=== PATIENT | male | born 1940 | race Caucasian/White ===

== ENCOUNTER 2020-04-02 04:52 | Inpatient (IN) ==
--- NOTE | 2020-03-20 15:26 | PAT Medication Instructions ---
Medication Instructions Date of Service March 20, 2020 Home Medications Prevagen 50 mg PO QPM albuterol sulfate 1 inh INHALATION QID PRN albuterol sulfate 2.5 mg INHALATION QID PRN amlodipine 10 mg PO QAM apixaban [Eliquis] 5 mg PO BID azelastine 1 spray INTRANASAL DAILY carvedilol 6.25 mg PO UD chlorthalidone 25 mg PO QAM cholecalciferol (vitamin D3) [Vitamin D3] 25 mcg PO BID diclofenac sodium 75 mg PO QAM finasteride 5 mg PO QAM gabapentin 100 mg PO QAM iron 159 mg PO HS losartan 100 mg PO QAM montelukast [Singulair] 10 mg PO HS pravastatin 40 mg PO BID tamsulosin 0.4 mg PO BID umeclidinium-vilanterol [Anoro Ellipta] 1 inh INHALATION QAM ASK your surgeon for instructions diclofenac sodium 75 mg PO QAM ASK your prescriber and surgeon apixaban [Eliquis] 5 mg PO BID (in order for spinal anesthesia, Apixaban/Eliquis needs to be stopped 72 hours/3 days before surgery. Please check if okay with doctor that prescribes this to you) DO NOT take the morning of surgery chlorthalidone 25 mg PO QAM cholecalciferol (vitamin D3) [Vitamin D3] 25 mcg PO BID losartan 100 mg PO QAM Take morning of surgery With a small sip of water, OTHERWISE NOTHING TO EAT OR DRINK AFTER MIDNIGHT: albuterol sulfate 1 inh INHALATION QID PRN (if needed) albuterol sulfate 2.5 mg INHALATION QID PRN (if needed) amlodipine 10 mg PO QAM azelastine 1 spray INTRANASAL DAILY carvedilol 6.25 mg PO UD finasteride 5 mg PO QAM gabapentin 100 mg PO QAM pravastatin 40 mg PO BID tamsulosin 0.4 mg PO BID umeclidinium-vilanterol [Anoro Ellipta] 1 inh INHALATION QAM Take evening before surgery Prevagen 50 mg PO QPM albuterol sulfate 1 inh INHALATION QID PRN (if needed) albuterol sulfate 2.5 mg INHALATION QID PRN (if needed) apixaban [Eliquis] 5 mg PO BID carvedilol 6.25 mg PO UD cholecalciferol (vitamin D3) [Vitamin D3] 25 mcg PO BID iron 159 mg PO HS montelukast [Singulair] 10 mg PO HS pravastatin 40 mg PO BID tamsulosin 0.4 mg PO BID Other Notes If you have any questions please call us at [phone] or [phone] or [phone] or [phone]
--- NOTE | 2020-03-21 12:43 | Anesthesiology Consultation ---
Date of Service March 21, 2020 Assessment & Plan (1) Encounter for pre-operative examination: - Elevated creatinine: creatinine 1.77 on preop labs. Awaiting PCP response and surgeon-ordered PCP clearance ([facility]; 03/26). - Cardiac testing: Per 12/2019 cardiology note, ECHO done 07/2019 and stress test 12/2018. Per patient, pacer check done "recently." Attempting to obtain official reports. - Per assessment on 03/21: Travel screen- Lives in [facility]. Travel to [facility] for doctor appts. No known COVID-19 positive contacts or current COVID-19 related symptoms. Surgeon arranging preop COVID testing. Awaiting results. - Cardiology note: 01/25/20: "doing fairly well clinically from a cardiac standpoint after permanent pacemaker placements.. Pacemaker check done July this year shows adequate battery voltage lead parameters and function.. Patient is an acceptable risk from the cardiovascular standpoint to proceed." - Hx aortic stenosis ("mild" on 07/2019 echo per 12/2019 cardiology office visit note- attempting to obtain official report). SAB vs. GA discussed with patient. OR made aware of possibility for general anesthesia. - Eliquis instructions: patient made aware that in order for spinal anesthesia, Eliquis needs to be held 72 hours/3 days prior to surgery. Patient voiced understanding- he states that he already checked with cardiology and they approved patient to stop Eliquis 3 days prior to surgery. History Surgery Operation Date: 04/02/20 07:15 Proposed Procedures p Right Total Hip Arthroplasty - Beau Lezama DO Height/Weight Height: 5 ft 11 in Weight: 125.2 kg Allergies Allergy/AdvReac Type Severity Reaction Status Date / Time No Known Allergies Allergy Verified 03/15/20 08:21 Medications Home Medications Medication Instructions Recorded Confirmed Last Taken Prevagen 50 mg PO QPM 03/15/20 03/15/20 Unknown albuterol sulfate 1 inh INHALATION QID PRN 03/15/20 03/15/20 Unknown albuterol sulfate 2.5 mg INHALATION QID PRN 03/15/20 03/15/20 Unknown amlodipine 10 mg PO QAM 03/15/20 03/15/20 Unknown apixaban [Eliquis] 5 mg PO BID 03/15/20 03/15/20 Unknown azelastine 1 spray INTRANASAL DAILY 03/15/20 03/15/20 Unknown carvedilol 6.25 mg PO UD 03/15/20 03/15/20 Unknown chlorthalidone 25 mg PO QAM 03/15/20 03/15/20 Unknown cholecalciferol (vitamin D3) 25 mcg PO BID 03/15/20 03/15/20 Unknown [Vitamin D3] diclofenac sodium 75 mg PO QAM 03/15/20 03/15/20 Unknown finasteride 5 mg PO QAM 03/15/20 03/15/20 Unknown gabapentin 100 mg PO QAM 03/15/20 03/15/20 Unknown iron 159 mg PO HS 03/15/20 03/15/20 Unknown losartan 100 mg PO QAM 03/15/20 03/15/20 Unknown montelukast [Singulair] 10 mg PO HS 03/15/20 03/15/20 Unknown pravastatin 40 mg PO BID 03/15/20 03/15/20 Unknown tamsulosin 0.4 mg PO BID 03/15/20 03/15/20 Unknown umeclidinium-vilanterol [Anoro 1 inh INHALATION QAM 03/15/20 03/15/20 Unknown Ellipta] Past Medical History Medical History Asthma stable BPH (benign prostatic hyperplasia) Chronic obstructive pulmonary disease stable Degenerative disc disease GERD (gastroesophageal reflux disease) controlled Hyperlipidemia Hypertension Mild aortic stenosis Obesity Osteoarthritis Pacemaker Implanted 08/11/19 at [facility] (07/30 SSS), last check 07/2019 per cardiology Paroxysmal A-fib Restless leg syndrome Sleep apnea CPAP Transient ischemic attack (TIA) multiple, most recent 1+ years ago Exercise / Class Metabolic Activity III < 4 Walking/Shop/Light housework (uses walker PRN) Past Family History Family History Father Family history of diabetes mellitus Brother No problems noted. Brother Family history of diabetes mellitus Past Surgical History Surgical History H/O hand surgery LEFT HAND FINGER REPAIRED History of colonoscopy History of tooth extraction Past Anesthesia History No Hx of Anesthesia Complications and No Family Hx of Anesthesia Complications History of PONV No Hx of PONV and No Hx of Motion Sickness Social History Smoking Status: Former smoker tobacco type: cigarettes Do You Dip or Chew Tobacco: No Smoking End Date: Quit 40 years ago Hx Alcohol Use: Yes alcohol intake frequency: holidays/special occasions only Hx Substance Use: No substance use type: does not use Review of Systems Patient denies chest pain, shortness of breath, fever, chills, cough, wheezing, palpitations. Physical Exam Vital Signs VITALS BP 97/70 P 78 TEM P 98.2 SP02 94%RA RESP 18 PHYSICAL Full neck and c-spine range of motion. Full TMJ range of motion. TMD 3.5 finger breaths Mallampati Score 3 Dentition: upper/lower dentures Lungs: diminished breath sounds throughout Cardiac: regular rate and rhythm, no murmurs noted Spine: normal Carotid arteries: negative bruit Extremities: no edema Testing Laboratory Results 03/21/20 13:54 03/21/20 13:54 PT 11.7 Seconds (9.0-12.0) 03/21/20 13:54 INR 1.1 (0.9-1.1) 03/21/20 13:54 APTT 30.8 Seconds (21.0-31.0) 03/21/20 13:54 Hemoglobin A1c 5.5 % (4.5-5.6) 03/21/20 13:54 Urine Color Yellow 03/21/20 Unknown Urine Appearance Clear (Clear) 03/21/20 Unknown Urine pH 5.0 (4.5-7.5) 03/21/20 Unknown Ur Specific [place] 1.019 (1.000-1.030) 03/21/20 Unknown Urine Protein Negative (Negative) 03/21/20 Unknown Urine Glucose (UA) Negative (Negative) 03/21/20 Unknown Urine Ketones Negative (Negative) 03/21/20 Unknown Urine Nitrite Negative (Negative) 03/21/20 Unknown Ur Leukocyte Esterase 2+ (Negative) H 03/21/20 Unknown Urine WBC (Auto) 5-10 /hpf (0-5) H 03/21/20 Unknown Urine RBC (Auto) 0-4 /hpf (0-4) 03/21/20 Unknown U Hyaline Cast (Auto) 1-5 /lpf (0-5) 03/21/20 Unknown U Epithel Cells (Auto) >30 /lpf (0-5) H 03/21/20 Unknown Urine Bacteria (Auto) Negative (Negative) 03/21/20 Unknown Blood Type AB Positive 03/21/20 13:54 Antibody Screen NEGATIVE 03/21/20 13:54 Electrocardiogram Date: 03/21/20 AV dual-paced rhythm with prolonged AV conduction with PVC's at 63bpm. unconfirmed report. Chest X-Ray Date: 03/21/20 FINDINGS: Cardiomediastinal and hilar silhouettes are within normal limits. Right subclavian dual lead pacer. No pneumothorax, pleural effusion, airspace consolidation or overt pulmonary edema. Bones of the chest appear grossly intact. IMPRESSION: No acute process. Echocardiogram Date: 08/10/19 "LVH pattern.. EF 65%.. grade 1 LV diastolic dysfunction.. normal size RV and function.. normal size both atria with high normal aortic root at 4.2 centimeters.. mild aortic stenosis.. mean 18.94 meteres of mercury.. valve area 1.5 centimeters.. mild MR.. mild .. midl AI.. trace to mild TR" per 01/25/20 cardiology office visit note. Stress Test 2017 Lexiscan stress test: "negative study for ischemia but positive for old inferior wall CT" per 01/25/2020 cardiology office visit note. Other Testing Pacer check: 07/2019: "adequate battery voltage.. lead parameters.. and function" per 01/25/20 cardiology office visit note.
--- NOTE | 2020-03-21 14:37 | XRay Report ---
XR chest Pre-admission PA/Lat HISTORY: 80 years-old Male pat preoperative exam. No acute chest complaints COMPARISON: None TECHNIQUE: PA and lateral views of the chest FINDINGS: Cardiomediastinal and hilar silhouettes are within normal limits. Right subclavian dual lead pacer. N o pneumothorax, pleural effusion, airspace consolidation or overt pulmonary edema. Bones of the chest appear grossly intact. IMPRESSION: No acute process. ACT 112: Negative or not required by law. The above report was generated using voice recognition software. It may contain grammatical, syntax o r spelling errors. Electronically signed by: Bry Gooden M.D. 03/21/2020 2:36 PM
[2020-03-21 15:01] LABS: Basophils # (auto) 0.02 K/uL (0-0.2); Basophils % (auto) 0.2 %; Eosinophils # (auto) 0.17 K/uL (0-0.5); Eosinophils % (auto) 1.8 %; Hematocrit (blood only) 42.2 % (42-52); Hemoglobin 14.3 g/dL (14.0-18.0); Immature Granulocytes # (auto) 0.03 K/uL (0.00-0.02); Immature Granulocytes % (auto) 0.3 %; Lymphocytes # (auto) 1.49 K/uL (1.2-3.4); Lymphocytes % (auto) 15.5 %; Mean Corpuscular Hemoglobin 29.9 pg (25-34); Mean Corpuscular Hgb Conc 33.9 g/dL (32-36); Mean Corpuscular Volume 88.1 fL (80-100); Mean Platelet Volume 9.4 fL (7.4-10.4); Monocytes # (auto) 0.39 K/uL (0.11-0.59); Neutrophils # (auto) 7.54 K/uL (1.4-6.5); Neutrophils % (auto) 78.2 %; Platelet Count 226 K/uL (130-400); RDW Coefficient of Variation 13.3 % (11.5-14.5); RDW Standard Deviation 43.1 fL (36.4-46.3); Red Blood Count 4.79 M/uL (4.7-6.1); White Blood Count 9.64 K/uL (4.8-10.8)
[2020-03-21 15:08] LABS: Albumin Level 3.5 gm/dl (3.4-5.0); BUN Creatinine Ratio 23.6 (10-20); Calcium 9.4 mg/dl (8.5-10.1); Creatinine Clr Calc Pharmacy 44.8 ml/min; Est GFR (African American) 41.1; Est GFR (Non-African American) 35.5; Potassium 3.5 mmol/L (3.5-5.1)
[2020-03-21 15:09] LABS: Appearance Urine Clear (Clear); Bacteria Urine Automated Negative (Negative); Bilirubin Urine Negative (Negative); Blood Urine Negative (Negative); Color Urine Yellow; Epithelial Cell Urine Auto >30 /lpf (0-5); Glucose Urine UA Negative (Negative); Ketones Urine Negative (Negative); Leukocyte Esterase Urine 2+ (Negative); Nitrite Urine Negative (Negative); Protein Urine Negative (Negative); RBC Urine Automated 0-4 /hpf (0-4); Specific Gravity Urine 1.019 (1.000-1.030); Urobilinogen Urine Negative (Negative)
[2020-03-21 15:13] LABS: INR 1.1 (0.9-1.1); Partial Thromboplastin Ratio 1.1; Partial Thromboplastin Time 30.8 Seconds (21.0-31.0); Prothrombin Time 11.7 Seconds (9.0-12.0)
[2020-03-22 06:03] LABS: Estimated Average Glucose 111 mg/dl; Hemoglobin A1C 5.5 % (4.5-5.6)
--- NOTE | 2020-03-22 12:52 | Electrocardiogram Report ---
Test Reason : Blood Pressure : / mmHG Vent. Rate : 063 BPM Atrial Rate : 063 BPM P-R Int : 262 ms QRS Dur : 174 ms QT Int : 522 ms P-R-T Axes : 057 -80 091 degrees QTc Int : 534 ms AV dual-paced rhythm with prolonged AV conduction with occasional Premature ventricular complexes Abnormal ECG No previous ECGs available Confirmed by Kelvin Muhammad ([id number]) on 03/22/2020 12:52:09 PM Referred By: Beau Lezama Confirmed By:Kelvin Muhammad
--- NOTE | 2020-03-30 16:42 | History & Physical Report ---
Date of Service April 02, 2020 Assessment & Plan (1) Degenerative joint disease of right hip: I have indicated the patient for right total hip replacement. The risks, benefits and complications of surgery were explained to the patient which include but not limited to infection, acute blood loss, DVT/PE, injury to nerves, vessels, bone, soft tissue, arthrofibrosis, chronic pain, failure of the prosthesis, hip dislocation, leg length discrepancy, need for additional surgery, cardiac and pulmonary events and . The patient wished to proceed with surgery and informed consent was obtained at this time. We will plan for restarting Eliquis post-operatively for DVT prophylaxis. Upon discharge the patient will be discharged home with home health services. Appropriate clearances by PCP were obtained. Patient is Jahovah's Witness, will not consent to transfusion. Cr elevated at PAT, PCP recheck of BMP on 03/26/20. Recheck 1.33, back to baseline. History of Present Illness Chief Complaint: Right hip pain/DJD Primary Care Provider: Maikel Charlton DO The patient is a 80 year old male who presents with complaints of severe right hip pain and DJD. The patient has failed outpatient conservative treatments to this point which included IA corticosteroid injection, home exercise/walking program, unable to have NSAIDS secondary to being on Eliquis. The patient's pain and limited function have progressed to the point where they severely hinder their activities of daily living and they no longer tolerate exercise programs. They are requesting to proceed with total hip replacement surgery. Allergies Allergy/AdvReac Type Severity Reaction Status Date / Time No Known Allergies Allergy Verified 04/02/20 05:33 Home Medications Home Medications Medication Instructions Recorded Confirmed Type Prevagen 50 mg PO QPM 03/15/20 04/02/20 History albuterol sulfate 1 inh INHALATION QID PRN 03/15/20 04/02/20 History albuterol sulfate 2.5 mg INHALATION QID PRN 03/15/20 03/15/20 History amlodipine 10 mg PO QAM 03/15/20 04/02/20 History apixaban [Eliquis] 5 mg PO BID 03/15/20 04/02/20 History azelastine 1 spray INTRANASAL DAILY 03/15/20 04/02/20 History carvedilol 6.25 mg PO UD 03/15/20 04/02/20 History chlorthalidone 25 mg PO QAM 03/15/20 04/02/20 History cholecalciferol (vitamin D3) 25 mcg PO BID 03/15/20 04/02/20 History [Vitamin D3] diclofenac sodium 75 mg PO QAM 03/15/20 04/02/20 History finasteride 5 mg PO QAM 03/15/20 04/02/20 History gabapentin 100 mg PO QAM 03/15/20 04/02/20 History iron 159 mg PO HS 03/15/20 04/02/20 History losartan 100 mg PO QAM 03/15/20 04/02/20 History montelukast [Singulair] 10 mg PO HS 03/15/20 04/02/20 History pravastatin 40 mg PO BID 03/15/20 04/02/20 History tamsulosin 0.4 mg PO BID 03/15/20 04/02/20 History umeclidinium-vilanterol [Anoro 1 inh INHALATION QAM 03/15/20 04/02/20 History Ellipta] Past Med/Surg History Medical History Asthma stable BPH (benign prostatic hyperplasia) Chronic obstructive pulmonary disease stable Degenerative disc disease GERD (gastroesophageal reflux disease) controlled Hyperlipidemia Hypertension Mild aortic stenosis Obesity Osteoarthritis Pacemaker Implanted 08/11/19 at [facility] (07/30 SSS), last check 07/2019 per cardiology Paroxysmal A-fib Restless leg syndrome Sleep apnea CPAP Transient ischemic attack (TIA) multiple, most recent 1+ years ago Surgical History H/O hand surgery LEFT HAND FINGER REPAIRED History of colonoscopy History of tooth extraction Family History Father Family history of diabetes mellitus Brother No problems noted. Brother Family history of diabetes mellitus Social History Smoking Status: Former smoker Smoking End Date: Quit 40 years ago; Second Hand Exposure: No; Do You Dip or Chew Tobacco: No; Tobacco Cessation Education Requested by Patient: No Hx Alcohol Use: Yes Hx Substance Use: No Preferred Language: Lebanese Flask Pusher Required: No Beliefs That Will Affect Care: Yazidism Yazidism Beliefs: JEHOVAW WITNESS/NO BLOOD PRODUCTS Current Living Situation: Spouse Feels Safe at Home: Yes Safety Concerns: Feels Safe At This Time Assistive Devices: Cane, CPAP, Denture - Upper, Denture - Lower, Glasses, Hearing Aid - Bilateral, Nebulizer and Walker Review of Systems Review of Systems: All systems reviewed & are unremarkable except as noted in HPI & below Constitutional: as per Subjective / HPI Physical Exam Physical Exam: RLE NVSI +EHL/FHL/TA/GS SILT grossly, +2 DP pulse, compartments soft NT, limited painful ROM of the hip, antalgic gait. Constitutional: WD/WN, vitals as above Eyes: PERRL, conjunctivae normal, anicteric sclerae ENMT: external ear and nose normal, oropharynx normal Neck: trachea midline, no thyromegaly Respiratory: normal respiratory effort, lungs clear to auscultation Cardiovascular: RRR, no murmur, no edema Gastrointestinal (Abdomen): normal bowel sounds, soft, nontender, no hepatospl enomegaly Musculoskeletal: no cyanosis or clubbing, extremities motor strength 5/5 Skin: no rashes, warm and dry Neurologic: patellar DTR's 2+ bilat, sensation intact Psychiatric: A+Ox3, euthymic affect Lymphatic: no cervical or axillary lymphadenopathy Results & Data Results & Data ([facility]) Diagnostic Findings Multiple views of the hip demonstrates severe DJD with complete loss of the joint space. +osteophytes, +sclerosis, +subchondral cysts. Pre Admission Testing Addendum Laboratory Results 03/21/20 13:54 03/21/20 13:54 PT 11.7 Seconds (9.0-12.0) 03/21/20 13:54 INR 1.1 (0.9-1.1) 03/21/20 13:54 APTT 30.8 Seconds (21.0-31.0) 03/21/20 13:54 Hemoglobin A1c 5.5 % (4.5-5.6) 03/21/20 13:54 Urine Color Yellow 03/21/20 Unknown Urine Appearance Clear (Clear) 03/21/20 Unknown Urine pH 5.0 (4.5-7.5) 03/21/20 Unknown Ur Specific [place] 1.019 (1.000-1.030) 03/21/20 Unknown Urine Protein Negative (Negative) 03/21/20 Unknown Urine Glucose (UA) Negative (Negative) 03/21/20 Unknown Urine Ketones Negative (Negative) 03/21/20 Unknown Urine Nitrite Negative (Negative) 03/21/20 Unknown Ur Leukocyte Esterase 2+ (Negative) H 03/21/20 Unknown Urine WBC (Auto) 5-10 /hpf (0-5) H 03/21/20 Unknown Urine RBC (Auto) 0-4 /hpf (0-4) 03/21/20 Unknown U Hyaline Cast (Auto) 1-5 /lpf (0-5) 03/21/20 Unknown U Epithel Cells (Auto) >30 /lpf (0-5) H 03/21/20 Unknown Urine Bacteria (Auto) Negative (Negative) 03/21/20 Unknown Blood Type AB Positive 03/21/20 13:54 Antibody Screen NEGATIVE 03/21/20 13:54 03/21/20 Unknown Urine Culture - Final Urine,Clean Catch Three types of organisms present, all low counts probable skin trey. No further identifications or sensitivities to follow.
[2020-04-02] MEDS ORDERED: dexAMETHasone 4 MG TAB PO SCH (06:00)
[2020-04-02] MEDS ORDERED: FAMOTIDINE 20 MG TAB PO SCH (06:00)
[2020-04-02] MEDS ORDERED: ACETAMINOPHEN 500 MG TAB PO SCH (06:00)
[2020-04-02] MEDS ORDERED: LR 500ML BOLUS, THEN 15ML/HR IV SCH (06:00)
[2020-04-02] MEDS ORDERED: GABAPENTIN 300 MG CAP PO SCH (06:00)
[2020-04-02] MEDS ORDERED: METOCLOPRAMIDE HCL 10 MG TABLET PO SCH (06:00)
[2020-04-02] MEDS ORDERED: CEFAZOLIN 3000MG 72.5 ML IV SCH (06:00)
[2020-04-02] MEDS ORDERED: BUPIVACAINE 0.5 % 5 MG/1 ML PF 10ML VIAL ONE (06:30)
[2020-04-02] MEDS ORDERED: MIDAZOLAM HCL 1 MG/ML 2ML VIAL ONE (06:43)
[2020-04-02] MEDS ORDERED: ONDANSETRON INJ 2 MG/ML 2 ML VIAL IV PRN ×2 (06:54→11:56)
[2020-04-02] MEDS ORDERED: ATROPINE SULFATE 0.1 MG/ML 10ML SYR IV PRN (06:54)
[2020-04-02] MEDS ORDERED: PROMETHAZINE HCL 12.5 MG in SODIUM CHLORIDE 0.9% 50 ML IV PRN (06:54)
[2020-04-02] MEDS ORDERED: ePHEDrine sulfate 50 MG/ML AMP IV PRN (06:54)
[2020-04-02] MEDS ORDERED: fentaNYL citrate 100 MCG/2 ML VIAL IV PRN (06:54)
[2020-04-02] MEDS ORDERED: HYDROmorphone INJ 2 MG/ML SYR/VIAL IV PRN (06:54)
--- NOTE | 2020-04-02 06:57 | History & Physical Bridge Note ---
Date of Service April 02, 2020 History & Physical Bridge Note I have examined the patient, reviewed the History & Physical and in the interval since the performance of the History & Physical I have noted the following changes of clinical significance: no changes noted
[2020-04-02] MEDS ORDERED: BACITRACIN INJ 50,000 UNIT VIAL ONE (07:10)
[2020-04-02] MEDS ORDERED: ROPIVACAINE 0.5% HCL/PF 150 MG, BUPIVACAINE 0.5% MPF 30 ML, EPINEPHrine 30MG/30ML (OR U... INFIL ONE (07:16)
[2020-04-02] MEDS ORDERED: HEPARIN (PORCINE) 1000 UNIT/ML 10 ML (CATH LAB USE ONLY) ONE (07:21)
[2020-04-02] MEDS ORDERED: GLYCOPYRROLATE 0.2 MG/ML VIAL ONE (08:00)
[2020-04-02] MEDS ORDERED: PHENYLEPHRINE 100MCG/ML 5ML SYR ONE (08:00)
[2020-04-02] MEDS ORDERED: ONDANSETRON INJ 2 MG/ML 2 ML VIAL ONE (08:00)
[2020-04-02] MEDS ORDERED: PROPOFOL IV EMULSION 10 MG/ML 20 ML VIAL IV ONE (08:00)
[2020-04-02] MEDS ORDERED: LIDOCAINE HCL 2% 2 ML VIAL/AMP(20MG/ML) INFIL ONE (08:00)
[2020-04-02] MEDS ORDERED: ePHEDrine sulfate 50 MG/ML SYR ONE (08:29)
--- NOTE | 2020-04-02 09:44 | Post Operative Brief Note ---
Immediate Post Op Note v1 Date of Surgery April 02, 2020 Pre & Post Diagnosis Operation Date: 04/02/20 07:15 Pre-Op Diagnosis: Unilateral Primary Osteoarthritis, Right Hip Post-Op Diagnosis: Unilateral Primary Osteoarthritis, Right Hip I identified the patient and participated in the time-out.: Yes Procedure Operation Date: 04/02/20 07:15 Actual Procedures p Right Total Hip Arthroplasty, Uncemented(Right) - Beau Lezama DO Surgeon Beau Lezama DO Carpenter Supervisor Reji Batista Estimated Blood Loss 185 Findings Consistent with Post-Op Diagnosis Fluids 1700 cc LR Specimens femoral head Anesthesia Type Spinal MAC Disposition Accompanied Patient To Recovery: No Disposition: Recovery Room Overlapping Procedure I was present for: the critical portions of procedure. I was immediately available: during the entire case. Back up surgeon: was not required during procedure.
--- NOTE | 2020-04-02 09:49 | Operative Report ---
Post Operative Report Pre & Post Diagnosis Operation Date: 04/02/20 07:15 Pre-Op Diagnosis: Unilateral Primary Osteoarthritis, Right Hip Post-Op Diagnosis: Unilateral Primary Osteoarthritis, Right Hip I identified the patient and participated in the time-out.: Yes Procedure Operation Date: 04/02/20 07:15 Actual Procedures p Right Total Hip Arthroplasty, Uncemented(Right) - Beau Lezama DO Surgeon Beau Lezama DO Recyclable Materials Sorter Reji Batista Estimated Blood Loss 185 Findings Consistent with Post-Op Diagnosis Fluids 1700 cc LR Specimens femoral head Anesthesia Type Spinal MAC Complications none Disposition Disposition: Recovery Room Indications The patient is a 80-year-old male who presents with severe progressive right hip DJD who has failed outpatient conservative treatments. I indicated the patient for a total hip replacement and the risks and benefits were explained in detail which included but not limited to infection, bleeding, blood clot, damage to surrounding bone, nerves, vessels, soft tissue, hip dislocation, failure of the prosthesis, leg length discrepancy, need for additional surgery and . The patient agreed to proceed with replacement of the hip and informed consent was obtained. Appropriate clearances were obtained. Description of Procedure COMPONENTS USED: Geovanna Biomet hip system: Acetabulum size 58, femur size 13.5 standard offset, femoral head 36+3.5, liner 5836, acetabular screw 25 mm x 1. Following induction of adequate spinal anesthesia, the patient was transferred to the OR table and placed in lateral decubitus position with left hip down. The right hip was prepped and draped in the typical sterile fashion. A timeout was performed, patient identified and site salvador confirmed. Appropriate antibiotics were given. A standard posterolateral/Dave-Langenbeck incision was made. Subcutaneous tissue was sharply dissected. Electrocautery was utilized for hemostasis. The fascia was incised throughout the length of the wound and retracted with the Charnley retractor. The bursa was taken down and the short external rotators were identified. The piriformis was tagged with #1 Vicryl. The short external rotators and capsule were divided from the posterior aspect of the femur using electrocautery. The posterior capsule was tagged with #1 Vicryl. Both external rotators and posterior capsule were swept posterior and protected, along with protecting the sciatic nerve. The hip was dislocated by flexion and internally rotation in a controlled manner and exposure of the femoral neck was gained with an old-style Hohmann and a blunt cobra retractor. A femoral cutting guide was utilized for making the appropriate level femoral neck cut with reciprocating saw. The femoral head was removed, measured and reserved on the back table. Next, attention was turned to the acetabulum. A posterior and anterior offset retractor was placed to gain adequate exposure. Acetabular labrum as well as posterior capsule elements were removed using electrocautery and forceps. Fovea centralis was cleared of all soft tissue. Sequential reaming was performed starting at 46 mm and carried up to a 57 mm and decision was made to proceed with impaction of a 58 mm G7 Osteo-Ti cup. This was impacted and held using a single 25 mm bone screw. The trial acetabular liner was placed at this time. Next, attention was turned to the proximal femur where a Bovie and pickup was used to further clear short external rotators from their insertion on the femur. Box osteotome and canal finder was used to gain access to the femoral canal and the lateral reamer on power was used to further open the proximal lateral canal. Sequentially rasping was carried up to a 13.5 which gave good fit and fill of the proximal femur. A trial reduction was carried out with a standard offset femoral neck component a 36+3.5 mm femoral head. The trial reduction was stable in all degrees of rotation with no [id number] impingement. The hip was dislocated, trial components were removed and access to the acetabulum was re-established. The trial liner was removed and the cup was irrigated to ensure all debris was removed. The final acetabular liner was inserted and properly seated in the cup. Access to the femur was once more gained and the size 13.5 femoral stem with standard offset was impacted into position. The hip was once more assessed with the 36+3.5 mm femoral head. Stability was accessed and found to be excellent with equal leg lengths. The hip was dislocated for the last time and the final 36+3.5 ceramic femoral head was impacted in place and the hip was reduced. Range of motion was checked once again and found to be stable. A Betadine soak was performed. After 3 minutes, the hip was once more irrigated with copious sterile saline solution with bacitracin. The ramon-incisional soft tissue was injected utilizing [place] ortho mix which includes a combination of Ropivicaine 0.5% 150mg, Bupivicaine 0.5%/Epinephrine 1:200,000 30ml, Toradol 30mg, Dexamethasone 4mg, Ketamine 10mg, Clonidine 100mcg and NSS 30ml Orthomix solution. The piriformis, external rotators and capsule were repaired to the greater trochanter through bone tunnels using #5 FiberWire. The fascia was closed using #1 Vicryl, subcutaneous tissue was closed using 2-0 Vicryl, and skin was closed with hernandez. A sterile dry dressing was applied which included Paulina incisional VAC. The patient tolerated the procedure well and was transported to PACU in stable condition. Due to the complex nature of the procedure, the entire surgery was performed with the operational assistance of Reji Batista PA-C. The diagnostic assistant, under direct supervision, was involved in the actual performance of all aspects of the surgical procedure including patient positioning, hemostasis, tissue retraction, instrument management and wound closure. I attest to the content of the Intraoperative Record and any orders documented therein. Any exceptions are noted below.
--- NOTE | 2020-04-02 10:37 | XRay Report ---
XR hip 1V RT w pelvis CLINICAL HISTORY: Postop hip arthroplasty COMPARISON: None. DISCUSSION: There are postsurgical changes of a total right hip arthroplasty. The acetabular and femo ral components appear well seated. There is no dislocation. There is gas present within the soft tiss ues consistent with recent surgery. IMPRESSION: Postsurgical changes of a total right hip arthroplasty. ACT 112: Negative or not required by law. Electronically signed by: Pete Pittman M.D. 04/02/2020 10:36 AM
--- NOTE | 2020-04-02 11:26 | Anesthesiology Progress Note ---
Date of Service April 02, 2020 Anesthesia Post Procedure Vital Signs Vital Signs: Temp Pulse Pulse Resp BP BP Pulse Ox 04/02/20 11:20 36.7 C 78 19 136/77 93 04/02/20 11:10 79 18 126/80 94 04/02/20 11:00 80 17 121/74 93 04/02/20 10:50 112 H 22 115/71 95 04/02/20 10:45 78 20 118/75 94 04/02/20 10:40 112 H 22 105/74 94 04/02/20 10:30 36.7 C 109 H 20 114/76 94 04/02/20 10:20 76 22 118/78 95 04/02/20 10:10 93 H 24 113/74 95 04/02/20 10:01 36.4 C L 91 H 19 105/62 90 04/02/20 06:41 36.8 C 60 18 136/71 97 04/02/20 06:02 36.6 C 65 18 132/75 97 Pain Intensity Right Hip: Pain Intensity: 10 Transfer of Care Handoff Completed per policy Notes Mental Status: alert / awake / arousable and participated in evaluation Patient Amnestic to Procedure: Yes Nausea / Vomiting: adequately controlled Pain: adequately controlled Airway Patency, RR, SpO2: stable & adequate BP & HR: stable & adequate Hydration State: stable & adequate Anesthetic Complications: no major complications apparent and Pt Satisfied with anesthetic care
[2020-04-02] MEDS ORDERED: OXYCODONE HCL IR 5 MG TAB (IMMEDIATE RELEASE) PO PRN (11:56)
[2020-04-02] MEDS ORDERED: bisacodyL 10 MG SUPP PR PRN (11:56)
[2020-04-02] MEDS ORDERED: NALOXONE HCL 0.4 MG/1 ML VIAL/CARP IV PRN (11:56)
[2020-04-02] MEDS ORDERED: MAGNESIUM HYDROXIDE SUSP 30 ML UDC PO PRN (11:56)
[2020-04-02] MEDS ORDERED: HYDROmorphone INJ 0.5 MG/0.5 ML SYR IV PRN (11:56)
[2020-04-02] MEDS ORDERED: ALBUTEROL HFA 8 GM INHALER INH PRN (11:56)
[2020-04-02] MEDS ORDERED: ALBUTEROL 0.083% NEBU SOLN 3 ML VIAL INH PRN (11:56)
[2020-04-02] MEDS ORDERED: METOCLOPRAMIDE HCL INJ 5 MG/ML 2 ML VIAL IV PRN (11:56)
[2020-04-02] MEDS: AZELASTINE~ORDER AWAITING ACTION SCH ×2 (12:53→16:30)
[2020-04-02] MEDS: SODIUM CHLORIDE 0.9% 1000ML 1,000 ML IV SCH ×2 (12:53→21:00)
--- NOTE | 2020-04-02 13:29 | Orthopedic Progress Note ---
Date of Service April 02, 2020 Assessment & Plan (1) Degenerative joint disease of right hip: Status post right total hip arthroplasty -Ancef x24 -DVT prophylaxis: SCDs, teds, Eliquis twice daily -Weight-bear as tolerated right lower extremity -Posterior hip precautions -PT/OT -Postoperative x-ray demonstrates a well aligned well fixed orthopedic prosthesis without fracture or dislocation -A.m. lab -DC planning Admission and Anticipated Discharge Date Admission Date: April 02, 2020 Subjective Post Operative Progress Note Patient seen sitting up in bed, comfortable, denies complaints, pain well controlled, no acute issues. Review of Systems Review of Systems: All systems reviewed & are unremarkable except as noted in HPI & below Constitutional: as per Subjective / HPI Physical Exam Physical Exam: RLE NVSI +EHL/FHL/TA/GS SILT grossly, +2 DP pulse, compartments soft NT, dressing cdi. Constitutional: WD/WN, vitals as above Results & Data ([facility]) Vital Signs (Past 12 Hours) Vital Signs Temp Pulse Pulse Pulse Resp BP BP 04/02/20 12:49 108 H 18 146/89 H 04/02/20 12:05 36.4 C L 82 16 136/79 04/02/20 11:35 36.6 C 79 20 114/70 04/02/20 11:20 36.7 C 78 19 136/77 04/02/20 11:10 79 18 126/80 04/02/20 11:00 80 17 121/74 04/02/20 10:50 112 H 22 115/71 04/02/20 10:45 78 20 118/75 04/02/20 10:40 112 H 22 105/74 04/02/20 10:30 36.7 C 109 H 20 114/76 04/02/20 10:20 76 22 118/78 04/02/20 10:10 93 H 24 113/74 04/02/20 10:01 36.4 C L 91 H 19 105/62 04/02/20 06:41 36.8 C 60 18 136/71 04/02/20 06:02 36.6 C 65 18 132/75 Pulse Ox 04/02/20 12:49 97 04/02/20 12:05 95 04/02/20 11:35 95 04/02/20 11:20 93 04/02/20 11:10 94 04/02/20 11:00 93 04/02/20 10:50 95 04/02/20 10:45 94 04/02/20 10:40 94 04/02/20 10:30 94 04/02/20 10:20 95 04/02/20 10:10 95 04/02/20 10:01 90 04/02/20 06:41 97 04/02/20 06:02 97
[2020-04-02] MEDS: ACETAMINOPHEN 500 MG TAB PO SCH ×2 (13:44→21:04)
--- NOTE | 2020-04-02 16:20 | Procedure Note ---
Procedure Note Date of Service April 02, 2020 Note I was asked to evaluate the patient's pacemaker due to some abnormal rhythms seen on telemetry PACU. Patient has a [employer] dual-chamber pacemaker. There is normal sensing on the atrial channel. Normal threshold on both the atrial and ventricular channels. The device did log to episodes of high ventricular rates early this morning. These appeared to coincide with the patient's operation and the intracardiac electrograms suggested ARLINE likely from cautery. No other arrhythmias identified. Current rhythm was atrial sensed ventricular paced. This appears to be normal device function. The arrhythmia is seen in the PACU could have represented some brief atrial arrhythmias tract by the device. I do not believe these were episodes of PMT as the rate was lower than the currently programmed max tracking rate. No additional precautions our recommendations at this time. Coding [facility] [place] Procedure Codes (Charges) Indication for Procedure Indication for procedure: PLease code: [id number]
[2020-04-02] MEDS: CEFAZOLIN 3,000 MG in DEXTROSE 5% 50 ML IV SCH (16:35)
[2020-04-02] MEDS ORDERED: FERROUS SULFATE DRIED 159 MG PO SCH (21:00)
[2020-04-02] MEDS: carvediloL 3.125 MG TAB PO SCH (21:01)
[2020-04-02] MEDS: TAMSULOSIN HCL 0.4 MG CAP PO SCH (21:02)
[2020-04-02] MEDS: SENNA 8.6 MG TAB PO SCH (21:03)
[2020-04-02] MEDS: DOCUSATE SODIUM 100 MG CAP PO SCH (21:03)
[2020-04-02] MEDS: MONTELUKAST SODIUM 10 MG TABLET PO SCH (21:04)
[2020-04-02] MEDS: PRAVASTATIN SOD 40 MG TAB PO SCH (21:04)
[2020-04-03] MEDS: AZELASTINE~ORDER AWAITING ACTION SCH ×4 (00:39→23:20)
[2020-04-03] MEDS: CEFAZOLIN 3,000 MG in DEXTROSE 5% 50 ML IV SCH (00:39)
[2020-04-03] MEDS: ACETAMINOPHEN 500 MG TAB PO SCH ×3 (05:14→21:25)
[2020-04-03 06:24] LABS: Basophils # (auto) 0.01 K/uL (0-0.2); Basophils % (auto) 0.1 %; Hematocrit (blood only) 34.5 % (42-52); Hemoglobin 11.8 g/dL (14.0-18.0); Immature Granulocytes # (auto) 0.05 K/uL (0.00-0.02); Immature Granulocytes % (auto) 0.3 %; Lymphocytes # (auto) 0.99 K/uL (1.2-3.4); Lymphocytes % (auto) 6.6 %; Mean Corpuscular Hemoglobin 29.9 pg (25-34); Mean Corpuscular Hgb Conc 34.2 g/dL (32-36); Mean Corpuscular Volume 87.3 fL (80-100); Mean Platelet Volume 9.1 fL (7.4-10.4); Monocytes # (auto) 1.14 K/uL (0.11-0.59); Monocytes % (auto) 7.5 %; Neutrophils # (auto) 12.92 K/uL (1.4-6.5); Neutrophils % (auto) 85.5 %; Platelet Count 190 K/uL (130-400); RDW Coefficient of Variation 13.2 % (11.5-14.5); RDW Standard Deviation 42.7 fL (36.4-46.3); Red Blood Count 3.95 M/uL (4.7-6.1); White Blood Count 15.11 K/uL (4.8-10.8)
[2020-04-03 06:58] LABS: BUN Creatinine Ratio 25.9 (10-20); Calcium 8.7 mg/dl (8.5-10.1); Creatinine Clr Calc Pharmacy 57.8 ml/min; Est GFR (African American) 56.6; Est GFR (Non-African American) 48.8
[2020-04-03] MEDS: AMLODIPINE BESYLATE 5 MG TAB PO SCH (08:39)
[2020-04-03] MEDS: FINASTERIDE 5 MG TAB PO SCH (08:39)
[2020-04-03] MEDS: UMECLIDINIUM/VILANTEROL 62.5/25MCG 7 PUFFS/INHALER INH SCH (08:39)
[2020-04-03] MEDS: MULTIVITAMIN TAB PO SCH (08:39)
[2020-04-03] MEDS: carvediloL 3.125 MG TAB PO SCH ×2 (08:40→21:25)
[2020-04-03] MEDS: TAMSULOSIN HCL 0.4 MG CAP PO SCH ×2 (08:40→21:25)
[2020-04-03] MEDS: APIXABAN 5 MG TABLET PO SCH ×2 (08:40→21:25)
[2020-04-03] MEDS: GABAPENTIN 100 MG CAP PO SCH (08:40)
[2020-04-03] MEDS: DOCUSATE SODIUM 100 MG CAP PO SCH ×2 (08:40→21:25)
[2020-04-03] MEDS: LOSARTAN POTASSIUM 50 MG TAB PO SCH (08:40)
[2020-04-03] MEDS: CHLORTHALIDONE 25 MG TAB PO SCH (08:40)
[2020-04-03] MEDS: PRAVASTATIN SOD 40 MG TAB PO SCH ×2 (08:40→21:25)
--- NOTE | 2020-04-03 10:20 | Orthopedic Progress Note ---
Date of Service April 03, 2020 Assessment & Plan (1) Degenerative joint disease of right hip: Status post right total hip arthroplasty POD#1 -Ancef x24 -DVT prophylaxis: SCDs, teds, Eliquis twice daily -Weight-bear as tolerated right lower extremity -Posterior hip precautions -PT/OT -Postoperative x-ray demonstrates a well aligned well fixed orthopedic prosthesis without fracture or dislocation -A.m. lab - as above, hgb 11.8 -DC planning - home with Admission and Anticipated Discharge Date Admission Date: April 02, 2020 Subjective Post Operative Progress Note Patient seen sitting up in bed, comfortable, denies complaints, pain well controlled, no acute issues. Denies F/C/N/V/SOB/CP. Review of Systems Review of Systems: All systems reviewed & are unremarkable except as noted in HPI & below Constitutional: as per Subjective / HPI Physical Exam Physical Exam: RLE NVSI +EHL/FHL/TA/GS SILT grossly, +2 DP pulse, compartments soft NT, dressing cdi. Constitutional: WD/WN, vitals as above Results & Data ([facility]) Vital Signs (Past 12 Hours) Vital Signs Temp Pulse Resp BP Pulse Ox 04/03/20 08:00 36.5 C 61 18 163/76 H 96 04/03/20 03:34 36.7 C 66 18 129/83 95 04/02/20 23:24 36.6 C 79 20 117/69 94 Diagnostic Findings 04/03/20 04/03/20 Range/Units 06:04 06:04 WBC 15.11 H (4.8-10.8) K/uL RBC 3.95 L (4.7-6.1) M/uL Hgb 11.8 L (14.0-18.0) g/dL Hct 34.5 L (42-52) % MCV 87.3 (80-100) fL MCH 29.9 (25-34) pg MCHC 34.2 (32-36) g/dL RDW Std Deviation 42.7 (36.4-46.3) fL RDW Coeff of Darren 13.2 (11.5-14.5) % Plt Count 190 (130-400) K/uL MPV 9.1 (7.4-10.4) fL Immature Gran % (Auto) 0.3 % Neut % (Auto) 85.5 % Lymph % (Auto) 6.6 % [place] % (Auto) 7.5 % Eos % (Auto) 0.0 % Baso % (Auto) 0.1 % Neut # (Auto) 12.92 H (1.4-6.5) K/uL Lymph # (Auto) 0.99 L (1.2-3.4) K/uL [place] # (Auto) 1.14 H (0.11-0.59) K/uL Eos # (Auto) 0.00 (0-0.5) K/uL Baso # (Auto) 0.01 (0-0.2) K/uL Immature Gran # (Auto) 0.05 H (0.00-0.02) K/uL Sodium 136 (136-145) mmol/L Potassium 4.0 (3.5-5.1) mmol/L Chloride 104 (98-107) mmol/L Carbon Dioxide 25 (21-32) mmol/L Anion Gap 7.0 (3-11) BUN 35 H (7-18) mg/dl Creatinine 1.36 (0.6-1.4) mg/dl Est Cr Clr Drug Dosing 57.8 ml/min Est GFR ( Amer) 56.6 Est GFR (Non-Af Amer) 48.8 BUN/Creatinine Ratio 25.9 H (10-20) Glucose 122 H (70-99) mg/dl Calcium 8.7 (8.5-10.1) mg/dl
[2020-04-03] MEDS: MONTELUKAST SODIUM 10 MG TABLET PO SCH (21:25)
[2020-04-03] MEDS: SENNA 8.6 MG TAB PO SCH (21:25)
[2020-04-04] MEDS: ACETAMINOPHEN 500 MG TAB PO SCH ×2 (05:41→13:29)
[2020-04-04 06:53] LABS: Basophils # (auto) 0.01 K/uL (0-0.2); Basophils % (auto) 0.1 %; Eosinophils # (auto) 0.08 K/uL (0-0.5); Eosinophils % (auto) 0.6 %; Hematocrit (blood only) 32.9 % (42-52); Hemoglobin 11.1 g/dL (14.0-18.0); Immature Granulocytes # (auto) 0.07 K/uL (0.00-0.02); Immature Granulocytes % (auto) 0.5 %; Lymphocytes # (auto) 1.69 K/uL (1.2-3.4); Lymphocytes % (auto) 13.2 %; Mean Corpuscular Hemoglobin 29.8 pg (25-34); Mean Corpuscular Hgb Conc 33.7 g/dL (32-36); Mean Corpuscular Volume 88.2 fL (80-100); Mean Platelet Volume 9.4 fL (7.4-10.4); Monocytes # (auto) 1.05 K/uL (0.11-0.59); Monocytes % (auto) 8.2 %; Neutrophils # (auto) 9.91 K/uL (1.4-6.5); Neutrophils % (auto) 77.4 %; Platelet Count 194 K/uL (130-400); RDW Coefficient of Variation 13.7 % (11.5-14.5); RDW Standard Deviation 44.5 fL (36.4-46.3); Red Blood Count 3.73 M/uL (4.7-6.1); White Blood Count 12.81 K/uL (4.8-10.8)
[2020-04-04 07:12] LABS: BUN Creatinine Ratio 26.6 (10-20); Calcium 9.2 mg/dl (8.5-10.1); Creatinine Clr Calc Pharmacy 67.2 ml/min; Est GFR (African American) 67.8; Est GFR (Non-African American) 58.5; Potassium 3.5 mmol/L (3.5-5.1)
--- NOTE | 2020-04-04 07:45 | Orthopedic Progress Note ---
Date of Service April 04, 2020 Assessment & Plan (1) Degenerative joint disease of right hip: Status post right total hip arthroplasty POD#2 -Ancef x24 -DVT prophylaxis: SCDs, teds, Eliquis twice daily -Weight-bear as tolerated right lower extremity -Posterior hip precautions -PT/OT -Postoperative x-ray demonstrates a well aligned well fixed orthopedic prosthesis without fracture or dislocation -A.m. lab - as above, hgb 11.1 -Urology consult -DC planning - home with POD#1 -Ancef x24 -DVT prophylaxis: SCDs, teds, Eliquis twice daily -Weight-bear as tolerated right lower extremity -Posterior hip precautions -PT/OT -Postoperative x-ray demonstrates a well aligned well fixed orthopedic prosthesis without fracture or dislocation -A.m. lab - as above, hgb 11.8 -DC planning - home with Admission and Anticipated Discharge Date Admission Date: April 02, 2020 Subjective Post Operative Progress Note Patient seen sitting up in bed, comfortable, denies complaints, pain well controlled, no acute issues. Denies F/C/N/V/SOB/CP. Patient had trouble with urine retention and bang was place Review of Systems Review of Systems: All systems reviewed & are unremarkable except as noted in HPI & below Constitutional: as per Subjective / HPI Physical Exam Physical Exam: RLE NVSI +EHL/FHL/TA/GS SILT grossly, +2 DP pulse, compartments soft NT, dressing cdi. Constitutional: WD/WN, vitals as above [facility] Data ([facility]) Vital Signs (Past 12 Hours) Vital Signs Temp Pulse Resp BP Pulse Ox 04/04/20 03:17 76 22 98 04/03/20 23:34 36.7 C 83 16 137/71 97 Laboratory Results 04/04/20 04/04/20 Range/Units 05:31 05:31 WBC 12.81 H (4.8-10.8) K/uL RBC 3.73 L (4.7-6.1) M/uL Hgb 11.1 L (14.0-18.0) g/dL Hct 32.9 L (42-52) % MCV 88.2 (80-100) fL MCH 29.8 (25-34) pg MCHC 33.7 (32-36) g/dL RDW Std Deviation 44.5 (36.4-46.3) fL RDW Coeff of Darren 13.7 (11.5-14.5) % Plt Count 194 (130-400) K/uL MPV 9.4 (7.4-10.4) fL Immature Gran % (Auto) 0.5 % Neut % (Auto) 77.4 % Lymph % (Auto) 13.2 % [place] % (Auto) 8.2 % Eos % (Auto) 0.6 % Baso % (Auto) 0.1 % Neut # (Auto) 9.91 H (1.4-6.5) K/uL Lymph # (Auto) 1.69 (1.2-3.4) K/uL [place] # (Auto) 1.05 H (0.11-0.59) K/uL Eos # (Auto) 0.08 (0-0.5) K/uL Baso # (Auto) 0.01 (0-0.2) K/uL Immature Gran # (Auto) 0.07 H (0.00-0.02) K/uL Sodium 140 (136-145) mmol/L Potassium 3.5 (3.5-5.1) mmol/L Chloride 108 H (98-107) mmol/L Carbon Dioxide 27 (21-32) mmol/L Anion Gap 5.0 (3-11) BUN 31 H (7-18) mg/dl Creatinine 1.17 (0.6-1.4) mg/dl Est Cr Clr Drug Dosing 67.2 ml/min Est GFR ( Amer) 67.8 Est GFR (Non-Af Amer) 58.5 BUN/Creatinine Ratio 26.6 H (10-20) Glucose 86 (70-99) mg/dl Calcium 9.2 (8.5-10.1) mg/dl
--- NOTE | 2020-04-04 08:39 | Urology Consultation ---
Date of Consultation April 04, 2020 Assessment & Plan (1) Urinary retention due to benign prostatic hyperplasia: Urinary retention after surgery Continue tamsulosin twice daily Leave catheter in place He is likely set for discharge home today He has an established relationship with a urologist in [place] and I discussed with him today that he should be able to have a voiding trial as an outpatient next week He is very comfortable with this plan History of Present Illness Attending Physician: Beau Lezama DO History of Present Illness 80-year-old male with urinary retention after joint replacement He has a long history of BPH and followed with a urologist in [place] He has been on tamsulosin twice daily for some time He had a relatively stable pattern prior to arrival He had a catheter placed yesterday and is very comfortable right now with a catheter in place Allergies Allergy/AdvReac Type Severity Reaction Status Date / Time No Known Allergies Allergy Verified 04/02/20 05:33 Home Medications Home Medications Medication Instructions Recorded Confirmed Type Prevagen 50 mg PO QPM 03/15/20 04/02/20 History albuterol sulfate 1 inh INHALATION QID PRN 03/15/20 04/02/20 History albuterol sulfate 2.5 mg INHALATION QID PRN 03/15/20 03/15/20 History amlodipine 10 mg PO QAM 03/15/20 04/02/20 History apixaban [Eliquis] 5 mg PO BID 03/15/20 04/02/20 History azelastine 1 spray INTRANASAL DAILY 03/15/20 04/02/20 History carvedilol 6.25 mg PO UD 03/15/20 04/02/20 History chlorthalidone 25 mg PO QAM 03/15/20 04/02/20 History cholecalciferol (vitamin D3) 25 mcg PO BID 03/15/20 04/02/20 History [Vitamin D3] diclofenac sodium 75 mg PO QAM 03/15/20 04/02/20 History finasteride 5 mg PO QAM 03/15/20 04/02/20 History gabapentin 100 mg PO QAM 03/15/20 04/02/20 History iron 159 mg PO HS 03/15/20 04/02/20 History losartan 100 mg PO QAM 03/15/20 04/02/20 History montelukast [Singulair] 10 mg PO HS 03/15/20 04/02/20 History pravastatin 40 mg PO BID 03/15/20 04/02/20 History tamsulosin 0.4 mg PO BID 03/15/20 04/02/20 History umeclidinium-vilanterol [Anoro 1 inh INHALATION QAM 03/15/20 04/02/20 History Ellipta] acetaminophen 1,000 mg PO Q8 PRN #90 tab 04/02/20 Rx oxycodone 5 mg PO Q6H PRN #30 tab MDD 4 04/02/20 Rx sennosides [Senokot] 17.2 mg PO HS PRN #28 tab 04/02/20 Rx Patient History Medical History Asthma stable BPH (benign prostatic hyperplasia) Chronic obstructive pulmonary disease stable Degenerative disc disease GERD (gastroesophageal reflux disease) controlled Hyperlipidemia Hypertension Mild aortic stenosis Obesity Osteoarthritis Pacemaker Implanted 08/11/19 at [facility] (07/30 [facility]), last check 07/2019 per cardiology Paroxysmal A-fib Restless leg syndrome Sleep apnea CPAP Transient ischemic attack (TIA) multiple, most recent 1+ years ago Surgical History H/O hand surgery LEFT HAND FINGER REPAIRED History of colonoscopy History of tooth extraction Family History Father Family history of diabetes mellitus Brother No problems noted. Brother Family history of diabetes mellitus Social History Smoking Status: Former smoker Smoking End Date: Quit 40 years ago; Second Hand Exposure: No; Do You Dip or Chew Tobacco: No; Tobacco Cessation Education Requested by Patient: No Hx Alcohol Use: Yes Hx Substance Use: No Preferred Language: Turkmen Communication Ability: Effective Fruit Buyer Required: No Beliefs That Will Affect Care: Jehovah'S Witness Jehovah'S Witness Beliefs: JEHOVAW WITNESS/NO BLOOD PRODUCTS marital status: Current Living Situation: Spouse Feels Safe at Home: Yes Safety Concerns: Feels Safe At This Time Assistive Devices: Walker Review of Systems Constitutional: no fever, no chills and no fatigue Eyes: no worsening vision Ear, Nose, Mouth, Throat: no facial pain and no pain with swallowing Respiratory: no cough and no dyspnea Cardiovascular: no chest pain and no palpitations Gastrointestinal: no abdominal pain, no nausea and no vomiting Musculoskeletal: no back pain Integumentary: no rash and no urticaria Neurologic: no gait abnormality and no unsteadiness Psychiatric: no behavioral changes and no depression Endocrine: no fatigue Physical Exam Constitutional: well developed and well nourished Neck: neck nontender Respiratory: normal respiratory effort; no respiratory distress and does not use accessory muscles Cardiovascular: Rate/Rhythm: regular rate Vessels: radial pulses present Extremities: no edema Gastrointestinal (Abdomen): Inspection/Auscultation: abdomen normal to inspection Percussion/Palpation: abdomen soft; abdomen nontender and no guarding Musculoskeletal: Head/Neck/Chest: normocephalic and head atraumatic Extremities: extremities normal to inspection Skin: no rashes and no lesions Trauma: no evidence of skin trauma Neurologic: awake; not obtunded Speech / Cognition: normal speech Motor/Sensory: no tremor Psychiatric: Orientation: alert and oriented x 3 Genitourinary: no CVA tenderness Lymphatic: no lymphadenopathy [facility]) Vital Signs (Past 12 Hours) Vital Signs Temp Pulse Pulse Resp BP Pulse Ox 04/04/20 07:41 36.3 C L 58 L 20 129/72 97 04/04/20 03:17 76 22 98 04/03/20 23:34 36.7 C 83 16 137/71 97 PG Care Time/CCT Total # of Minutes Spent Total Time Spent with Patient: Total time spent is greater than 50% in coordination of care (as documented) at patient's floor/unit and/or counseling patient: Coding Level of Care Code 71501 Inpt Consult Level 3 Diagnoses Urinary retention due to benign prostatic hyperplasia N40.1; R33.8
[2020-04-04] MEDS: UMECLIDINIUM/VILANTEROL 62.5/25MCG 7 PUFFS/INHALER INH SCH (09:02)
[2020-04-04] MEDS: DOCUSATE SODIUM 100 MG CAP PO SCH (09:03)
[2020-04-04] MEDS: APIXABAN 5 MG TABLET PO SCH (09:03)
[2020-04-04] MEDS: MULTIVITAMIN TAB PO SCH (09:04)
[2020-04-04] MEDS: TAMSULOSIN HCL 0.4 MG CAP PO SCH (09:04)
[2020-04-04] MEDS: PRAVASTATIN SOD 40 MG TAB PO SCH (09:04)
[2020-04-04] MEDS: FINASTERIDE 5 MG TAB PO SCH (09:05)
[2020-04-04] MEDS: GABAPENTIN 100 MG CAP PO SCH (09:06)
[2020-04-04] MEDS: AZELASTINE~ORDER AWAITING ACTION SCH (09:06)
[2020-04-04] MEDS: carvediloL 3.125 MG TAB PO SCH (09:07)
[2020-04-04] MEDS: CHLORTHALIDONE 25 MG TAB PO SCH (09:08)
[2020-04-04] MEDS: AMLODIPINE BESYLATE 5 MG TAB PO SCH (09:08)
[2020-04-04] MEDS: LOSARTAN POTASSIUM 50 MG TAB PO SCH (09:08)
--- NOTE | 2020-04-04 15:59 | Discharge Summary ---
Date of Service April 04, 2020 Admission HPI Per Admitting Provider The patient is a 80 year old male who presents with complaints of severe right hip pain and DJD. The patient has failed outpatient conservative treatments to this point which included IA corticosteroid injection, home exercise/walking program, unable to have NSAIDS secondary to being on Eliquis. The patient's pain and limited function have progressed to the point where they severely hinder their activities of daily living and they no longer tolerate exercise programs. They are requesting to proceed with total hip replacement surgery. Principal Diagnosis Right total hip replacement -Right hip DJD Discharge Exam RLE NVSI +EHL/FHL/TA/GS SILT grossly, +2 DP pulse, compartments soft NT, dressing cdi. Constitutional WD/WN, vitals as above Discharge Data Allergies Allergy/AdvReac Type Severity Reaction Status Date / Time No Known Allergies Allergy Verified 04/02/20 05:33 Consultations 04/03/20 08:00 Consult Case Management - Discharge Planning Routine 04/03/20 15:59 Consult Urology Routine Procedures Performed Operation Date: 04/02/20 07:15 Actual Procedures p Right Total Hip Arthroplasty, Uncemented(Right) - Beau Lezama DO [facility] Course (1) Degenerative joint disease of right hip: The patient is a 80 -year-old male who presents with long standing history of severe right hip DJD and failed outpatient conservative treatments. The patient's symptoms have progressed to the point where it has been difficult to perform even normal activities of daily living. I indicated the patient for a right total hip arthroplasty, the risks, benefits and complications of the procedure include but not limited to infection, bleeding, damage to bone, nerves, vessels, surrounding soft tissue, may develop blood clots, loss of function, leg length discrepancy, dislocation, failure of the components, loosening of the components, the need for additional surgery and . The patient wished to proceed with surgery at this time and informed consent was obtained. Hospital Course: On 04/02/20 the patient was taken to the operating room, adequate anesthesia administered and underwent a right total hip arthroplasty. The patient tolerated the procedure well and was taken to the PACU in stable condition. Post-operatively the patient was started on a DVT ppx medication and given appropriate IV antibiotics. Consults were placed to physical therapy, occupational therapy and case management. On POD#1, the patient did well overnight and their pain was well controlled. Labs were drawn and the Hgb was 11.8. The patient progressed well with PT. Patient had urinary retention and catheter placed. Consulted urology. On POD#2, the patient continued to progress with PT. Pain well controlled, no acute issues overnight. Labs drawn, hgb 11.1. The patient was seen by urology, rec continue with catheter and void challenge as outpatient, patient to follow up with his urologist in [place]. The patients hospital stay was relatively uneventful and they were deemed stable by the orthopedic team and consultants to be discharged home with on 04/04/20. Discharge Instructions: Upon discharge the patient may weight bear as tolerates through their operative extremity. They were instructed to keep the incision clean and dry at all times. The patient may shower but should not submerge the incision, avoid bathing, pools and hot tubes. The patient was given a script for pain medication and should take as instructed. The patient's home blood thinner, Eliquis was restarted and should take as directed. The patient was instructed to not drive or travel for long distances until cleared to do so. If the patient develops any symptoms of fevers, chills, nausea, vomiting, increased redness, swelling, pain or drainage from the surgical site, they should notify the office and/or proceed to the nearest emergency room. The patient should follow up in 10-14 days after surgery for their routine post-operative follow-up appointment and should call the office to confirm the date and time. Status post right total hip arthroplasty POD#2 -Ancef x24 -DVT prophylaxis: SCDs, teds, Eliquis twice daily -Weight-bear as tolerated right lower extremity -Posterior hip precautions -PT/OT -Postoperative x-ray demonstrates a well aligned well fixed orthopedic prosthesis without fracture or dislocation -A.m. lab - as above, hgb 11.1 -Urology consult -DC planning - home with POD#1 -Ancef x24 -DVT prophylaxis: SCDs, teds, Eliquis twice daily -Weight-bear as tolerated right lower extremity -Posterior hip precautions -PT/OT -Postoperative x-ray demonstrates a well aligned well fixed orthopedic prosthesis without fracture or dislocation -A.m. lab - as above, hgb 11.8 -DC planning - home with Total Time Total Time Spent Total Time Spent (In Minutes): 45 Discharge Plan Discharge Items Patient Disposition: Home - Home Health Services Reason For Visit: Unilateral Primary Osteoarthritis, Right Hip Discharge Diagnosis: Right total hip replacement -Right hip DJD Condition on Discharge: Good Activity: Per Instructions section Lifting: Wait until after follow-up appointment Bathing: Keep incision dry Bathing Comment: No bathing, pools or hot tubs. Sexual Activity: Wait until after follow-up appointment Exercise/Sports: Wait until after follow-up appointment Driving/Machine Use: No driving Weightbearing: Full weightbearing Non-emergency contact: Primary Care Provider and Surgeon Call non-emergency contact if: you have any medication questions, your symptoms worsen, your pain is not controlled, your pain is worsening, your pain is unusual for you, your pain is concerning for you, you have a fever, your temperature is above 101, your wound has increased redness, your wound has increased drainage and your wound pain has increased Follow-up/Referrals: Maikel Charlton D.O. [Primary Care Provider] - Diet: Regular Addtl Attending Provider Instructions: ACTIVITY RECOMMENDATIONS: SELF CARE INSTRUCTIONS AFTER TOTAL HIP REPLACEMENT : Direct Anterior Approach Until the incision and soft tissues around your hip have healed, there is a possibility that the hip prosthesis could dislocate. A. Hip flexion ( Up & Down out of chair or steps ) may be difficult. This is normal. B. Numbness in front of the thigh is also normal for a few weeks. C. Use hand rails when walking on stairs. D. Wear low heeled shoes with non-slip soles. E. Be sure that your floors are free of things that could trip you - throw rugs, electrical cords, small objects. Avoid wet and waxed floors, especially with crutches and canes. F. Try to walk several times a day with rest periods between. G. Continue with all the exercises taught to you in the hospital. Again, make walking a part of your daily routine. SPECIAL CARE INSTRUCTIONS: VERY IMPORTANT TO READ AND REVIEW A. You may still be at risk for phlebitis and blood clots. 1. Wear surgical stockings (CLEMENTE hose) for 2 weeks after surgery to improve circulation and reduce swelling. 2. Take Aspirin 81mg twice daily for 4 weeks or as directed by your doctor. This is your blood thinner. 3. High risk patients may be prescribed a stronger blood thinner if necessary. 4. If you are on Coumadin normally, your family doctor/gaming department head should monitor your blood work. Expect a phone call the day of or the day after bloodwork is drawn to adjust your dosage. B. You must take antibiotics before having dental work, bladder, bowel and other surgery. Your doctor will provide you with a permanent card to carry describing precautions. C. Call [facility] if you have a fever, redness or swelling around the incision, cloudy drainage from incision, or sudden increase in pain in your hip, not relieved by your regular pain medication. D. Please call the office at if you have any concerns or questions about your operation or recovery. * YOU MAY SHOWER, NO TUB BATHS UNTIL CLEARED BY YOUR DOCTOR. - Keep an extra close eye on the top portion of your incision. Be sure to keep clean & dry. * WEAR CLEMENTE HOSE 20 HOURS PER DAY FOR 2 WEEKS. * YOU MAY PROGRESS FROM A WALKER, TO A CANE, TO INDEPENDENT AT YOUR OWN PACE. * MOST PATIENTS WILL HAVE HOME NURSING FOR THERAPY. IF YOU DECIDE TO DO OUTPATIENT PHYSICAL THERAPY, PLEASE SCHEDULE THIS 3 TIMES PER WEEK. *PREVENA incisional vac is a special dressing covering your incision. This dressing provides a sterile dry environment while you are healing. The dressing is to be left in place for 7 days post-operatively. Your home nurse or surgeon will remove. If you develop any redness or blisters or have any questions notify your surgeon immediately. FOLLOW UP VISIT: If appointment is not already scheduled: Please call [facility] to make a follow-up appointment for 2 weeks after your surgery at . Please follow-up with your urologist (DR. GOFF) at home in 1 week for [place] catheter removal and voiding trials. Pending Studies at Discharge: No Stand-Alone Forms: [facility], Opioid Pain Management, Smoking Cessation Medications and DC Order Prescriptions: New acetaminophen 500 mg Tablet 1,000 mg PO Q8 PRN (Reason: pain/fevers) Qty: 90 RF: 0 oxycodone 5 mg Tablet 5 mg PO Q6H MDD 4 PRN (Reason: pain) Qty: 30 RF: 0 sennosides [Senokot] 8.6 mg Tablet 17.2 mg PO HS PRN (Reason: constipation) Qty: 28 RF: 0 sulfamethoxazole-trimethoprim [Bactrim DS] 800-160 mg tablet 1 tab PO Q12H Qty: 14 RF: 0 Continued carvedilol 6.25 mg Tablet 6.25 mg PO UD RF: 0 albuterol sulfate 2.5 mg /3 mL (0.083 %) Solution For Nebulization 2.5 mg INHALATION QID PRN (Reason: SHORT OF BREATH) RF: 0 pravastatin 40 mg Tablet 40 mg PO BID RF: 0 chlorthalidone 25 mg Tablet 25 mg PO QAM RF: 0 tamsulosin 0.4 mg Capsule 0.4 mg PO BID RF: 0 amlodipine 10 mg Tablet 10 mg PO QAM RF: 0 montelukast [Singulair] 10 mg Tablet 10 mg PO HS RF: 0 gabapentin 100 mg Capsule 100 mg PO QAM RF: 0 albuterol sulfate 90 mcg/actuation Hfa Aerosol Inhaler 1 inh INHALATION QID PRN (Reason: SHORT OF BREATH) RF: 0 losartan 100 mg Tablet 100 mg PO QAM RF: 0 finasteride 5 mg Tablet 5 mg PO QAM RF: 0 cholecalciferol (vitamin D3) [Vitamin D3] 25 mcg (1,000 unit) Tablet 25 mcg PO BID RF: 0 Eliquis 5 mg Tablet 5 mg PO BID RF: 0 Anoro Ellipta 62.5-25 mcg/actuation Blister With Device 1 inh INHALATION QAM RF: 0 Prevagen 50 mg PO QPM RF: 0 iron 159 mg (45 mg iron) Tablet Extended Release 159 mg PO HS RF: 0 azelastine 0.15 % (205.5 mcg) [place],Non-Aerosol 1 spray INTRANASAL DAILY RF: 0 Discontinued diclofenac sodium 75 mg Tablet,Delayed Release (Dr/Ec) 75 mg PO QAM RF: 0 Discharge Orders: Discharge Order (Routine); Ordered 04/04/20 Ordered By: Reji Xiong/Other Patient Handouts: DVT Post Op Prevention, Indwelling Urinary Catheter Dc Admission Data Admit Date/Time: 04/02/20 10:16 Attending Provider: Beau Lezama Admit Provider: Beau Lezama Primary Care Provider: Maikel Charlton Other Providers: Roddy Emery Other Interventions: Discharge Summary Assessment (RN) Last Done: 04/04/20 12:42
== END 2020-04-04 14:40 | disposition home health service (06) | DRG 470 ==
LOC: 3E 04:52 → ASU 04:52 → OBSVTOIN 10:16
DX: M16.11 Unilateral primary osteoarthritis, right hip; N40.1 Benign prostatic hyperplasia with lower urinary tract symptoms; Z79.1 Long term (current) use of non-steroidal anti-inflammatories (NSAID); I49.8 Other specified cardiac arrhythmias; I48.0 Paroxysmal atrial fibrillation; Z86.73 Personal history of transient ischemic attack (TIA), and cerebral infarction without residual deficits; Z79.01 Long term (current) use of anticoagulants; E78.5 Hyperlipidemia, unspecified; Z95.0 Presence of cardiac pacemaker; Z87.891 Personal history of nicotine dependence; R33.8 Other retention of urine; Z51.81 Encounter for therapeutic drug level monitoring; G47.30 Sleep apnea, unspecified; J44.9 Chronic obstructive pulmonary disease, unspecified; E66.9 Obesity, unspecified; I10 Essential (primary) hypertension; Z79.899 Other long term (current) drug therapy; Z68.37 Body mass index [BMI] 37.0-37.9, adult